=== PATIENT | female | born 1935 | race Caucasian/White ===

== ENCOUNTER → 2016-05-22 | Outpatient (REF) | payer MEDICARE, OTHER ==
[2016-05-22 16:43] LABS: MEAN CORPUSCULAR HEMOGLOBIN 32.7 pg (27.0-33.0); RED CELL DISTRIBUTION WIDTH 13.4 % (11.5-14.5); WHITE BLOOD COUNT 5.7 K/mm3 (4.0-10.0)
[2016-05-22 17:30] LABS: ALBUMIN 4.3 GM/DL (3.2-5.2); ALBUMIN/GLOBULIN RATIO 1.26 (1.00-1.93); BILIRUBIN,TOTAL 0.7 MG/DL (0.2-1.0); CALCIUM LEVEL 9.5 MG/DL (8.8-10.2); CREATININE FOR GFR 1.06 MG/DL (0.55-1.02); FREE T4 1.29 NG/DL (0.76-1.46); GLOMERULAR FILTRATION RATE 53.4 (>39); POTASSIUM SERUM 4.1 MEQ/L (3.5-5.1); TOTAL PROTEIN 7.7 GM/DL (6.4-8.2)
[2016-05-22 18:30] LABS: ANISOCYTOSIS 1+; EOSINOPHILS 1 % (0-5)
== END | disposition home or self-care (01) ==
LOC: M SFHCPLAZ 10:16 → M SFHCCLAY 10:20
PROVIDERS: ATTEND Family Medicine
DX: N18.3 Chronic kidney disease, stage 3 (moderate) (principal); E03.9 Hypothyroidism, unspecified; E53.8 Deficiency of other specified B group vitamins

== ENCOUNTER → 2016-06-05 | Outpatient (CLI) | payer MEDICARE, OTHER ==
--- NOTE | 2016-06-05 15:59 | REP ---
RENAL ULTRASOUND: HISTORY: Renal cyst. The kidneys are normal in echogenicity and size. The right kidney measures 4.6 cm in transverse x 4.6 cm in AP x 8.9 cm in cephalocaudal dimensions. The left kidney measures 5.4 cm in transverse x 5.3 cm in AP x 9.6 cm in cephalocaudal dimensions. A cyst is present in the upper pole of the right kidney. The cyst measures 2.1 x 1.7 x 1.5 cm. There is no hydronephrosis or mass. There are no filling defects in the urinary bladder. IMPRESSION: 2.1 cm right renal cyst. Signed by Delvin Pham MD 06/05/2016 04:04 P
== END | disposition home or self-care (01) ==
LOC: M RAD 13:38
PROVIDERS: ATTEND Family Medicine
DX: N28.1 Cyst of kidney, acquired (principal)

== ENCOUNTER → 2016-09-16 | Outpatient (REF) | payer MEDICARE, OTHER | LOC: M LAB REF 17:04 | PROVIDERS: ATTEND Obstetrics & Gynecology | DX: R89.8 Other abnormal findings in specimens from other organs, systems and tissues (principal) ==

== ENCOUNTER → 2016-10-04 | Outpatient (REF) | payer MEDICARE, OTHER ==
[2016-10-04 11:41] LABS: BASO % 0.4 % (0.0-1.0); EOS # 0.1 K/mm3 (0.0-0.50); LARGE UNSTAINED CELL # 0.1 K/mm3 (0.0-0.4); LARGE UNSTAINED CELL % 1.1 % (0.0-4.0); LYMPH # 1.3 K/mm3 (1.5-4.5); LYMPH % 19.4 % (24.0-44.0); MEAN CORPUSCULAR HEMOGLOBIN 33.1 pg (27.0-33.0); MEAN CORPUSCULAR HGB CONC 32.5 g/dl (32.0-36.5); MEAN CORPUSCULAR VOLUME 101.9 fl (80.0-96.0); MONO # 1.5 K/mm3 (0.0-0.8); MONO % 22.7 % (0.0-5.0); NEUTROPHILS # 3.6 K/mm3 (1.8-7.7); NEUTROPHILS % 54.4 % (36.0-66.0); PLATELET COUNT, AUTOMATED 200 k/mm3 (150-450); RED CELL DISTRIBUTION WIDTH 12.4 % (11.5-14.5); WHITE BLOOD COUNT 6.6 K/mm3 (4.0-10.0)
[2016-10-04 12:10] LABS: ALBUMIN/GLOBULIN RATIO 1.25 (1.00-1.93); BILIRUBIN,TOTAL 0.6 MG/DL (0.2-1.0); CALCIUM LEVEL 8.8 MG/DL (8.8-10.2); FREE T4 1.32 NG/DL (0.76-1.46); GLOMERULAR FILTRATION RATE 57.1 (>39); POTASSIUM SERUM 4.2 MEQ/L (3.5-5.1); TOTAL PROTEIN 7.2 GM/DL (6.4-8.2)
== END ==
LOC: M SFHCCLAY 08:13
PROVIDERS: ATTEND Family Medicine
DX: N18.3 Chronic kidney disease, stage 3 (moderate) (principal); E78.2 Mixed hyperlipidemia

== ENCOUNTER → 2016-10-11 | Outpatient (CLI) | payer MEDICARE, OTHER ==
[~2016-10-11] MED LIST: ALBU0.63 NEB; BIMA01SOL; BREO1INH3 INH; BRIM1OPD; DORZ2OPD; LEVO125T3 OR; LEVO75TA4 OR
--- NOTE | 2016-10-11 13:43 | REP ---
Clinical: Chronic obstructive pulmonary disease. Technique: PA and lateral. Comparison: 2012. Findings: Mediastinum and cardiac silhouette normal. Lung de leon demonstrate mild hyperinflation and diffuse chronic interstitial changes without acute consolidation, effusion, or pneumothorax. Skeletal structures are intact. Impression: Changes related to chronic obstructive pulmonary disease. No obvious acute cardiopulmonary process. Signed by Rd Mario MD 10/11/2016 01:35 P
== END ==
LOC: M RAD 13:06 → M LAB 13:06
PROVIDERS: ATTEND Family Medicine
DX: J44.9 Chronic obstructive pulmonary disease, unspecified (principal)
CPT/HCPCS: 71020; G0463

== ENCOUNTER 2016-10-14 12:47 | Emergency (ER) | payer MEDICARE, OTHER ==
[~2016-10-14] VITALS: Ht 160 cm; Wt 45.4 kg
[2016-10-14] MEDS ORDERED: IPRATROPIUM 0.5MG/ALBUTEROL 2.5MG INH SOL UD 3ML (DUONEB)(J7620) NEB ONE (14:15)
[2016-10-14] MEDS ORDERED: LEVO125T3 OR (14:16)
[2016-10-14] MEDS ORDERED: ALBU0.63 NEB (14:16)
[2016-10-14] MEDS ORDERED: BIMA01SOL (14:16)
[2016-10-14] MEDS ORDERED: BRIM1OPD (14:16)
[2016-10-14] MEDS ORDERED: BREO1INH3 INH (14:16)
[2016-10-14] MEDS ORDERED: DORZ2OPD (14:16)
[2016-10-14] MEDS ORDERED: LEVO75TA4 OR (14:16)
[2016-10-14 15:20] VITALS: BP 145/82
--- NOTE | 2016-10-15 07:20 | ECGEPIP ---
Stationary ECG Study [facility] - ED Test Date: 2016-10-14 Pat Name: MARKO GRECO Department: Room: - Gender: F A P Supervisor: mingo : [id number] Requested By: MARTHA Rodriguez Order Number: [id number] Reading MD: Gonsalo Wright Measurements Intervals [place] Rate: 59 P: 65 ND: 160 QRS: 77 QRSD: 87 T: 71 QT: 397 QTc: 393 Interpretive Statements SINUS BRADYCARDIA WITH SINUS ARRHYTHMIA POSSIBLE LAE INC. RBBB Electronically Signed On 10-15-2016 7:20:02 EDT by Gonsalo Wright
== END 2016-10-14 16:28 | disposition home or self-care (01) ==
LOC: M ED 13:31
DX: J06.9 Acute upper respiratory infection, unspecified (principal); R06.02 Shortness of breath; J44.9 Chronic obstructive pulmonary disease, unspecified; F17.210 Nicotine dependence, cigarettes, uncomplicated; Z79.899 Other long term (current) drug therapy; Z79.51 Long term (current) use of inhaled steroids; Z88.8 Allergy status to other drugs, medicaments and biological substances

== ENCOUNTER → 2016-11-25 | Outpatient (REF) | payer MEDICARE, OTHER ==
[~2016-11-25] MED LIST changes: -LEVO125T3 OR; +LEVO125T4 OR
[2016-11-25 19:16] LABS: BASO % 0.4 % (0.0-1.0); EOS # 0.1 K/mm3 (0.0-0.50); EOS % 1.7 % (0.0-3.0); LARGE UNSTAINED CELL # 0.1 K/mm3 (0.0-0.4); LARGE UNSTAINED CELL % 1.1 % (0.0-4.0); LYMPH # 1.4 K/mm3 (1.5-4.5); LYMPH % 16.9 % (24.0-44.0); MEAN CORPUSCULAR HEMOGLOBIN 33.1 pg (27.0-33.0); MEAN CORPUSCULAR HGB CONC 32.9 g/dl (32.0-36.5); MEAN CORPUSCULAR VOLUME 100.7 fl (80.0-96.0); MONO # 2.3 K/mm3 (0.0-0.8); MONO % 29.2 % (0.0-5.0); NEUTROPHILS % 50.7 % (36.0-66.0); PLATELET COUNT, AUTOMATED 200 k/mm3 (150-450); RED CELL DISTRIBUTION WIDTH 12.8 % (11.5-14.5); WHITE BLOOD COUNT 7.9 K/mm3 (4.0-10.0)
[2016-11-25 19:31] LABS: CALCIUM LEVEL 9.8 MG/DL (8.8-10.2); CREATININE FOR GFR 0.97 MG/DL (0.55-1.02); POTASSIUM SERUM 3.7 MEQ/L (3.5-5.1)
== END ==
LOC: M SFHCPLAZ 15:43
PROVIDERS: ATTEND Physician Assistant
DX: Z01.818 Encounter for other preprocedural examination (principal); N64.9 Disorder of breast, unspecified
CPT/HCPCS: 36415; 80048; 85025; G0463

== ENCOUNTER 2017-01-29 09:43 | Outpatient (RCR) | payer MEDICARE, OTHER | END 2017-02-15 | LOC: M PT 09:43 | PROVIDERS: ATTEND Registered Nurse | DX: Z51.89 Encounter for other specified aftercare (principal); Z90.11 Acquired absence of right breast and nipple; R59.1 Generalized enlarged lymph nodes | CPT/HCPCS: 97162; G8984; G8985; G8986 ==

== ENCOUNTER → 2017-02-05 | Outpatient (REF) | payer MEDICARE, OTHER ==
[2017-02-05 12:27] LABS: MEAN CORPUSCULAR HEMOGLOBIN 33.3 pg (27.0-33.0); MEAN CORPUSCULAR HGB CONC 33.6 g/dl (32.0-36.5); RED CELL DISTRIBUTION WIDTH 12.3 % (11.5-14.5)
[2017-02-05 12:31] LABS: ALBUMIN 3.7 GM/DL (3.2-5.2); ALBUMIN/GLOBULIN RATIO 1.19 (1.00-1.93); ALKALINE PHOSPHATASE 76 U/L (45-117); ALT/SGPT 21 U/L (12-78); ANION GAP 5 MEQ/L (8-16); AST/SGOT 21 U/L (15-37); BILIRUBIN,TOTAL 0.5 MG/DL (0.2-1.0); BLOOD UREA NITROGEN 10 MG/DL (7-18); CALCIUM LEVEL 9.2 MG/DL (8.8-10.2); CARBON DIOXIDE LEVEL 29 MEQ/L (21-32); CHLORIDE LEVEL 107 MEQ/L (98-107); CREATININE FOR GFR 0.88 MG/DL (0.55-1.02); GLOMERULAR FILTRATION RATE > 60.0 (>39); GLUCOSE, FASTING 88 MG/DL (83-110); POTASSIUM SERUM 3.9 MEQ/L (3.5-5.1); SODIUM LEVEL 141 MEQ/L (136-145); TOTAL PROTEIN 6.8 GM/DL (6.4-8.2)
[2017-02-05 13:17] LABS: EOSINOPHILS 8 % (0-5)
== END ==
LOC: M SFHCCLAY 08:29
PROVIDERS: ATTEND Family Medicine
DX: D72.821 Monocytosis (symptomatic) (principal); N18.3 Chronic kidney disease, stage 3 (moderate); E55.9 Vitamin D deficiency, unspecified; Z79.899 Other long term (current) drug therapy

== ENCOUNTER → 2017-02-17 | Outpatient (REF) | payer MEDICARE, OTHER ==
[2017-02-18 10:25] LABS: CARCINOEMBRYONIC ANTIGEN 10.5 NG/ML (<2.5)
== END ==
LOC: M LAB REF 13:31
PROVIDERS: ATTEND Internal Medicine Medical Oncology
DX: C50.919 Malignant neoplasm of unspecified site of unspecified female breast (principal)

== ENCOUNTER → 2017-02-20 | Outpatient (CLI) | payer MEDICARE, OTHER ==
--- NOTE | 2017-02-21 09:32 | DEXA ---
AP SPINE L1 - L4 1.253 0.5 2.3 LT FEMUR TOTAL 0.954 -0.4 1.5 RT FEMUR TOTAL 1.027 0.2 2.1 TOTAL BODY TOTAL OTHER COMMENTS: Normal bone densitometry of the spine and hips. The density of the spine has increased 6.2% since the initial exam on 10/2002. The spine density has increased 3.1% since the most recent exam on 12/2011. The density of the left hip has decreased 3.9% since the initial exam on 10/2002. The density of the left hip has decreased 2.1% since the most recent exam on 2011. The density of the right hip has decreased 1.8% since the initial exam on 2002. The density of the right hip has decreased 0.1% since the most recent exam on 2011. FOLLOW-UP: Recommendation for the next bone density exam: 5 years. SHWETA
== END ==
LOC: M WHC 08:54
PROVIDERS: ATTEND Internal Medicine Medical Oncology
DX: Z13.820 Encounter for screening for osteoporosis (principal); Z85.3 Personal history of malignant neoplasm of breast

== ENCOUNTER → 2017-02-21 | Outpatient (CLI) | payer MEDICARE, OTHER ==
[~2017-02-21] MED LIST changes: +GASTROGRAFIN SOLUTION 30ML (Q9963) As Ordered ONE; +ISOVUE-370 76% 100ML VIAL (Q9967) As Ordered ONE
--- NOTE | 2017-02-21 15:36 | REP ---
CT chest with IV contrast: History: Staging of breast carcinoma. CT contrast dose: 33 ml of intravenous Isovue 370 is administered. The patient declined the rest of the intravenous injection. Comparison CT study June 11, 2013. CT findings: There is fair opacification of the pulmonary arterial tree and the thoracic aorta. There is no evidence of embolus or aneurysm. Vascular calcifications is noted in the aortic arch and great vessel origins. No hilar or mediastinal mass or adenopathy is seen. No pleural or pericardial effusion is seen. The right breast is surgically absent. No axillary adenopathy is seen. There are clips in the right axillary soft tissues. No pulmonary mass or infiltrate is seen. No adrenal lesion is seen. There are two small cortical cysts in the upper pole of the right kidney. Incidental note is made of a 1.8 x 1.9 x 2.2 cm cystic area in the pancreatic tail. This is a new finding compared with the November 29, [address] and the June 01, [address] There is a focal pancreatic tail calcification adjacent to this. No bony destructive lesion is appreciated. Impression: Status post right mastectomy. Status post cholecystectomy. No active intrathoracic disease. 2.2 cm cystic pancreatic lesion in the pancreatic tail, new from prior studies. Transgastric endoscopic ultrasound could be utilized to characterize this further and perhaps sample its histology or content. Signed by Sanjeev Davis MD 02/21/2017 03:59 P
--- NOTE | 2017-02-21 15:42 | REP ---
CT abdomen and pelvis without and with IV contrast: With oral contrast. History: Staging breast carcinoma. CT contrast dose: 33 mL of intravenous Isovue 370 is administered. The patient declined the remainder of the injection. Comparison CT study November 29, 2015. Findings: The liver and spleen are normal in size homogeneous in texture. No adrenal lesion is seen. No focal liver lesion is observed. The gallbladder is surgically absent. There is a homogeneous low density lesion in the pancreatic tail as described in the chest CT report measuring 2.2 cm in greatest diameter. This is new from the comparison CT abdomen imaging November 29, 2015. There is a pancreatic calcification adjacent to this. No adenopathy is seen. No contrast enhancement is seen. There are two right renal cysts. Normal caliber aorta is seen. Small and large intestinal bowel loops are unremarkable. No abdominal mass lesion is seen. No uterine or ovarian abnormality is observed. No bladder mass is observed. No abdominal wall defect. Bone window settings show no bony destructive lesion. Impression: 2.2 cm cystic lesion in the tail of the pancreas. This is new from December 06, 2015 and is suspicious for a cystic pancreatic neoplasm versus pseudocyst. Endoscopic transgastric ultrasound could be utilized for further characterization and possibly tissue sampling. No evidence of mass, adenopathy or metastatic bone disease seen. Signed by Sanjeev Davis MD 02/21/2017 03:59 P
== END ==
LOC: M RAD 12:15
PROVIDERS: ATTEND Internal Medicine Medical Oncology
DX: C50.919 Malignant neoplasm of unspecified site of unspecified female breast (principal)
CPT/HCPCS: 71260; 74178; Q9963; Q9967

== ENCOUNTER → 2017-02-24 | Outpatient (CLI) | payer MEDICARE, OTHER ==
[~2017-02-24] MED LIST changes: -GASTROGRAFIN SOLUTION 30ML (Q9963) As Ordered ONE; -ISOVUE-370 76% 100ML VIAL (Q9967) As Ordered ONE
== END ==
LOC: M PLARAD 10:03
PROVIDERS: ATTEND Internal Medicine Medical Oncology
DX: C50.919 Malignant neoplasm of unspecified site of unspecified female breast (principal)

== ENCOUNTER → 2017-04-07 | Outpatient (REF) | payer MEDICARE, OTHER | LOC: M LAB REF 13:25 | PROVIDERS: ATTEND Internal Medicine Medical Oncology | DX: C50.919 Malignant neoplasm of unspecified site of unspecified female breast (principal); E55.9 Vitamin D deficiency, unspecified; Z79.899 Other long term (current) drug therapy ==

== ENCOUNTER → 2017-06-05 | Outpatient (REF) | payer MEDICARE, OTHER ==
[2017-06-05 17:29] LABS: BASO % 0.8 % (0.0-1.0); EOS # 0.1 10^3/uL (0.0-0.50); EOS % 2.5 % (0.0-3.0); HEMATOCRIT 41.9 % (36.0-47.0); HEMOGLOBIN 13.5 g/dl (12.0-16.0); IMMATURE GRANULOCYTE # 0.1 10^3/uL (0-0); IMMATURE GRANULOCYTE % 1.4 % (0-0); LYMPH # 1.1 10^3/uL (1.5-4.5); LYMPH % 21.2 % (24.0-44.0); MEAN CORPUSCULAR HEMOGLOBIN 31.9 pg (27.0-33.0); MEAN CORPUSCULAR HGB CONC 32.2 g/dl (32.0-36.5); MEAN CORPUSCULAR VOLUME 99.1 fl (80.0-96.0); MONO # 1.8 10^3/uL (0.0-0.8); MONO % 35.3 % (0.0-5.0); NEUTROPHILS % 38.8 % (36.0-66.0); PLATELET COUNT, AUTOMATED 267 10^3/uL (150-450); RED BLOOD COUNT 4.23 10^6/uL (4.00-5.40); RED CELL DISTRIBUTION WIDTH 12.9 % (11.5-14.5); WHITE BLOOD COUNT 5.1 10^3/uL (4.0-10.0)
[2017-06-05 17:37] LABS: HEMATOCRIT 41.9 % (36.0-47.0)
[2017-06-05 18:23] LABS: ALBUMIN/GLOBULIN RATIO 1.11 (1.00-1.93); ALKALINE PHOSPHATASE 121 U/L (45-117); ALT/SGPT 27 U/L (12-78); ANION GAP 6 MEQ/L (8-16); AST/SGOT 25 U/L (7-37); BILIRUBIN,TOTAL 0.4 MG/DL (0.2-1.0); BLOOD UREA NITROGEN 9 MG/DL (7-18); CALCIUM LEVEL 9.4 MG/DL (8.8-10.2); CARBON DIOXIDE LEVEL 30 MEQ/L (21-32); CHLORIDE LEVEL 104 MEQ/L (98-107); CREATININE FOR GFR 0.89 MG/DL (0.55-1.02); FREE T4 1.72 NG/DL (0.76-1.46); GLOMERULAR FILTRATION RATE > 60.0 (>39); GLUCOSE, FASTING 99 MG/DL (83-110); POTASSIUM SERUM 3.9 MEQ/L (3.5-5.1); SODIUM LEVEL 140 MEQ/L (136-145); THYROID STIMULATING HORMONE 0.369 uIU/ML (0.358-3.740); TOTAL PROTEIN 7.6 GM/DL (6.4-8.2)
[2017-06-05 18:26] LABS: VITAMIN B12 LEVEL > 2000 PG/ML (247-911)
[2017-06-06 12:06] LABS: PRETREATED FOLATE FOR RBCFOL 14.3 NG/ML; RBC FOLATE 716.7 NG/ML (280-791)
== END ==
LOC: M SFHCCLAY 09:10
DX: G62.9 Polyneuropathy, unspecified (principal); N18.3 Chronic kidney disease, stage 3 (moderate); E53.8 Deficiency of other specified B group vitamins; Z79.899 Other long term (current) drug therapy
CPT/HCPCS: 84443

== ENCOUNTER → 2017-06-30 | Outpatient (REF) | payer MEDICARE, OTHER ==
[2017-07-01 14:22] LABS: CA19-9 TUMOR MARKER,CARBOHYDRA 15853.6 U/ML (<35.0)
== END ==
LOC: M LAB REF 19:07
DX: C50.919 Malignant neoplasm of unspecified site of unspecified female breast (principal)
CPT/HCPCS: 86301

== ENCOUNTER → 2017-07-07 | Outpatient (REF) | payer MEDICARE, OTHER ==
[2017-07-08 12:46] LABS: CA19-9 TUMOR MARKER,CARBOHYDRA 14070.4 U/ML (<35.0)
== END ==
LOC: M LAB REF 18:03
DX: C50.919 Malignant neoplasm of unspecified site of unspecified female breast (principal); C78.89 Secondary malignant neoplasm of other digestive organs
CPT/HCPCS: 86301

== ENCOUNTER → 2017-07-14 | Outpatient (REF) | payer MEDICARE, OTHER | LOC: M LAB REF 16:57 | DX: C25.9 Malignant neoplasm of pancreas, unspecified (principal) | CPT/HCPCS: 86301 ==

== ENCOUNTER → 2017-07-30 | Outpatient (REF) | payer MEDICARE, OTHER | LOC: M SFHCCLAY 10:11 | DX: E03.9 Hypothyroidism, unspecified (principal) ==

== ENCOUNTER → 2017-08-01 | Outpatient (REF) | payer MEDICARE, OTHER ==
[2017-08-01 17:33] LABS: FREE T4 1.19 NG/DL (0.76-1.46)
== END ==
LOC: M SFHCCLAY 11:25
DX: E03.9 Hypothyroidism, unspecified (principal)
CPT/HCPCS: 84443

== ENCOUNTER → 2017-08-04 | Outpatient (CLI) | payer MEDICARE, OTHER ==
[~2017-08-04] MED LIST changes: -ALBU0.63 NEB; -BIMA01SOL; -BREO1INH3 INH; -BRIM1OPD; -DORZ2OPD; +ISOVUE-370 76% 100ML VIAL (Q9967) As Ordered; -LEVO125T4 OR; -LEVO75TA4 OR
== END ==
LOC: M RAD 09:29
DX: Z85.3 Personal history of malignant neoplasm of breast (principal); Z85.07 Personal history of malignant neoplasm of pancreas; I73.9 Peripheral vascular disease, unspecified; G93.9 Disorder of brain, unspecified
CPT/HCPCS: Q9967

== ENCOUNTER → 2017-08-06 | Outpatient (REF) | payer MEDICARE, OTHER ==
[2017-08-06 16:41] LABS: INR 0.94; PROTHROMBIN TIME 12.7 SECONDS (12.4-14.5)
[2017-08-06 16:42] LABS: PARTIAL THROMBOPLASTIN TIME 32.5 SECONDS (26.8-37.9)
== END ==
LOC: M LABDRAWC 16:17
DX: C50.919 Malignant neoplasm of unspecified site of unspecified female breast (principal); Z79.01 Long term (current) use of anticoagulants
CPT/HCPCS: 85610

== ENCOUNTER → 2017-08-11 | Outpatient (REF) | payer MEDICARE, OTHER ==
[2017-08-12 12:52] LABS: CA19-9 TUMOR MARKER,CARBOHYDRA 1896.5 U/ML (<35.0)
== END ==
LOC: M LAB REF 17:29
DX: C25.9 Malignant neoplasm of pancreas, unspecified (principal)
CPT/HCPCS: 86301

== ENCOUNTER → 2017-08-20 | Outpatient (CLI) | payer MEDICARE, OTHER ==
[~2017-08-20] MED LIST changes: +CLINDAMYCIN 600 MG/50 ML PREMIX BAG As Ordered; -ISOVUE-370 76% 100ML VIAL (Q9967) As Ordered; +LIDOCAINE 2% MDV 20 ML VIAL As Ordered; +MIDAZOLAM INJ 2 MG/2 ML VIAL (J2250) As Ordered; +fentaNYL 100 MCG/2 ML INJECTION (J3010) As Ordered
== END | disposition home or self-care (01) ==
LOC: M IRPRO 07:48
DX: C25.9 Malignant neoplasm of pancreas, unspecified (principal); C78.7 Secondary malignant neoplasm of liver and intrahepatic bile duct
CPT/HCPCS: 36561

== ENCOUNTER → 2017-09-15 | Outpatient (CLI) | payer MEDICARE, OTHER ==
[~2017-09-15] MED LIST changes: -CLINDAMYCIN 600 MG/50 ML PREMIX BAG As Ordered; +ISOVUE-370 76% 100ML VIAL (Q9967) As Ordered; -LIDOCAINE 2% MDV 20 ML VIAL As Ordered; -MIDAZOLAM INJ 2 MG/2 ML VIAL (J2250) As Ordered; -fentaNYL 100 MCG/2 ML INJECTION (J3010) As Ordered
== END ==
LOC: M RAD 10:45
DX: C50.919 Malignant neoplasm of unspecified site of unspecified female breast (principal); N28.1 Cyst of kidney, acquired; R91.8 Other nonspecific abnormal finding of lung field; R93.5 Abnormal findings on diagnostic imaging of other abdominal regions, including retroperitoneum
CPT/HCPCS: Q9967

== ENCOUNTER → 2017-09-22 | Outpatient (REF) | payer MEDICARE, OTHER ==
[2017-09-23 12:23] LABS: CA19-9 TUMOR MARKER,CARBOHYDRA 1241.5 U/ML (<35.0)
== END ==
LOC: M LAB REF 17:52
DX: C78.7 Secondary malignant neoplasm of liver and intrahepatic bile duct (principal); C50.911 Malignant neoplasm of unspecified site of right female breast; C25.2 Malignant neoplasm of tail of pancreas
CPT/HCPCS: 86301

== ENCOUNTER → 2017-10-07 | Outpatient (CLI) | payer MEDICARE, OTHER | LOC: M PLARAD 08:20 | DX: C25.2 Malignant neoplasm of tail of pancreas (principal); C25.9 Malignant neoplasm of pancreas, unspecified (principal) | CPT/HCPCS: 78815 ==

== ENCOUNTER → 2017-10-14 | Outpatient (REF) | payer MEDICARE, OTHER ==
[2017-10-15 11:26] LABS: BASO % 0.5 % (0.0-1.0); EOS # 0.1 10^3/uL (0.0-0.50); EOS % 0.9 % (0.0-3.0); HEMATOCRIT 29.5 % (36.0-47.0); HEMOGLOBIN 9.7 g/dl (12.0-15.5); IMMATURE GRANULOCYTE % 3.8 % (0-3.0); LYMPH # 1.4 10^3/uL (1.5-4.5); LYMPH % 23.1 % (24.0-44.0); MEAN CORPUSCULAR HEMOGLOBIN 35.4 pg (27.0-33.0); MEAN CORPUSCULAR HGB CONC 32.9 g/dl (32.0-36.5); MEAN CORPUSCULAR VOLUME 107.7 fl (80.0-96.0); MONO # 1.7 10^3/uL (0.0-0.8); MONO % 28.4 % (0.0-5.0); NEUTROPHILS # 2.5 10^3/uL (1.8-7.7); NEUTROPHILS % 43.3 % (36.0-66.0); PLATELET COUNT, AUTOMATED 109 10^3/uL (150-450); RED BLOOD COUNT 2.74 10^6/uL (4.00-5.40); RED CELL DISTRIBUTION WIDTH 16.7 % (11.5-14.5); RETIC HEMOGLOBIN EQUIVALENT 37.5 pg (24-36); RETICULOCYTE # 105.8 10^9/L (17-77); RETICULOCYTE % 3.9 % (0.5-1.5); WHITE BLOOD COUNT 5.8 10^3/uL (4.0-10.0)
[2017-10-15 11:52] LABS: TOTAL 25(OH) VITAMIN D 35.9 NG/ML (30.0-100.0)
[2017-10-15 11:53] LABS: VITAMIN B12 LEVEL 1391 PG/ML (247-911)
[2017-10-15 12:02] LABS: ALBUMIN/GLOBULIN RATIO 1.54 (1.00-1.93); ALKALINE PHOSPHATASE 89 U/L (45-117); ALT/SGPT 43 U/L (12-78); ANION GAP 5 MEQ/L (8-16); AST/SGOT 39 U/L (7-37); BILIRUBIN,TOTAL 0.4 MG/DL (0.2-1.0); BLOOD UREA NITROGEN 13 MG/DL (7-18); CALCIUM LEVEL 8.8 MG/DL (8.8-10.2); CARBON DIOXIDE LEVEL 29 MEQ/L (21-32); CHLORIDE LEVEL 104 MEQ/L (98-107); CREATININE FOR GFR 0.96 MG/DL (0.55-1.30); FREE T4 1.35 NG/DL (0.76-1.46); GLOMERULAR FILTRATION RATE 59.5 (>32); GLUCOSE, FASTING 118 MG/DL (70-100); POTASSIUM SERUM 3.8 MEQ/L (3.5-5.1); SODIUM LEVEL 138 MEQ/L (136-145); TOTAL PROTEIN 6.6 GM/DL (6.4-8.2)
== END ==
LOC: M SFHCPLAZ 11:34
DX: E03.9 Hypothyroidism, unspecified (principal); E53.8 Deficiency of other specified B group vitamins; E55.9 Vitamin D deficiency, unspecified; N18.3 Chronic kidney disease, stage 3 (moderate)
CPT/HCPCS: 84443

== ENCOUNTER → 2017-11-04 | Outpatient (CLI) | payer MEDICARE, OTHER | LOC: M PLARAD 07:04 | DX: C25.2 Malignant neoplasm of tail of pancreas (principal); R91.8 Other nonspecific abnormal finding of lung field | CPT/HCPCS: 78815 ==

== ENCOUNTER 2017-11-08 19:02 | Emergency (ER) | payer MEDICARE, OTHER ==
[2017-11-08 20:39] LABS: BASO % 0.2 % (0.0-1.0); EOS % 0.5 % (0.0-3.0); HEMATOCRIT 25.3 % (36.0-47.0); HEMOGLOBIN 8.5 g/dl (12.0-15.5); IMMATURE GRANULOCYTE % 1.4 % (0-3.0); LYMPH % 22.4 % (24.0-44.0); MEAN CORPUSCULAR HEMOGLOBIN 35.6 pg (27.0-33.0); MEAN CORPUSCULAR HGB CONC 33.6 g/dl (32.0-36.5); MEAN CORPUSCULAR VOLUME 105.9 fl (80.0-96.0); MONO # 0.2 10^3/uL (0.0-0.8); MONO % 5.5 % (0.0-5.0); NEUTROPHILS # 3.1 10^3/uL (1.8-7.7); PLATELET COUNT, AUTOMATED 117 10^3/uL (150-450); RED BLOOD COUNT 2.39 10^6/uL (4.00-5.40); RED CELL DISTRIBUTION WIDTH 14.4 % (11.5-14.5); WHITE BLOOD COUNT 4.4 10^3/uL (4.0-10.0)
[2017-11-08 20:54] LABS: ALBUMIN 3.2 GM/DL (3.2-5.2); ALBUMIN/GLOBULIN RATIO 1.14 (1.00-1.93); ALKALINE PHOSPHATASE 76 U/L (45-117); ALT/SGPT 43 U/L (12-78); ANION GAP 6 MEQ/L (8-16); AST/SGOT 31 U/L (7-37); BILIRUBIN,DIRECT 0.1 MG/DL (0.0-0.2); BILIRUBIN,TOTAL 0.4 MG/DL (0.2-1.0); BLOOD UREA NITROGEN 14 MG/DL (7-18); CALCIUM LEVEL 8.4 MG/DL (8.8-10.2); CARBON DIOXIDE LEVEL 29 MEQ/L (21-32); CHLORIDE LEVEL 107 MEQ/L (98-107); CREATININE FOR GFR 0.77 MG/DL (0.55-1.30); GLOMERULAR FILTRATION RATE > 60.0 (>32); GLUCOSE, FASTING 91 MG/DL (70-100); LIPASE 88 U/L (73-393); POTASSIUM SERUM 4.4 MEQ/L (3.5-5.1); SODIUM LEVEL 142 MEQ/L (136-145)
[2017-11-08] MEDS: MORPHINE 4 MG/ML 1ML VIAL/SYRINGE (J2270) IV (20:58)
[2017-11-08] MEDS: ONDANSETRON 4MG/2ML VIAL (J2405) IV (20:58)
[2017-11-08] MEDS: SODIUM CHLORIDE 0.9% INJ 10 ML SYR IV (22:32)
== END 2017-11-08 22:54 | disposition home or self-care (01) ==
LOC: M ED 19:02
DX: C25.9 Malignant neoplasm of pancreas, unspecified (principal); T45.1X5A Adverse effect of antineoplastic and immunosuppressive drugs, initial encounter; R11.2 Nausea with vomiting, unspecified; J44.9 Chronic obstructive pulmonary disease, unspecified; Z72.0 Tobacco use; Z79.891 Long term (current) use of opiate analgesic; Z79.899 Other long term (current) drug therapy; Z88.8 Allergy status to other drugs, medicaments and biological substances
CPT/HCPCS: J2270

== ENCOUNTER → 2017-11-17 | Outpatient (REF) | payer MEDICARE, OTHER ==
[2017-11-18 10:45] LABS: CA19-9 TUMOR MARKER,CARBOHYDRA 992.2 U/ML (<35.0)
== END ==
LOC: M LAB REF 18:05
DX: C78.7 Secondary malignant neoplasm of liver and intrahepatic bile duct (principal); C50.911 Malignant neoplasm of unspecified site of right female breast; C25.2 Malignant neoplasm of tail of pancreas
CPT/HCPCS: 86301

== ENCOUNTER 2017-12-15 09:34 | Emergency (ER) | payer MEDICARE, OTHER ==
[2017-12-15] MEDS: NS 1,000 ML IV ×2 (10:30→19:15)
[2017-12-15 11:09] LABS: BASO % 0.1 % (0.0-1.0); EOS # 0.1 10^3/uL (0.0-0.50); EOS % 0.3 % (0.0-3.0); HEMATOCRIT 29.5 % (36.0-47.0); HEMOGLOBIN 9.7 g/dl (12.0-15.5); IMMATURE GRANULOCYTE % 1.7 % (0-3.0); LYMPH # 0.8 10^3/uL (1.5-4.5); MEAN CORPUSCULAR HEMOGLOBIN 34.2 pg (27.0-33.0); MEAN CORPUSCULAR HGB CONC 32.9 g/dl (32.0-36.5); MEAN CORPUSCULAR VOLUME 103.9 fl (80.0-96.0); MONO % 20.4 % (0.0-5.0); NEUTROPHILS # 11.5 10^3/uL (1.8-7.7); NEUTROPHILS % 72.5 % (36.0-66.0); PLATELET COUNT, AUTOMATED 207 10^3/uL (150-450); RED BLOOD COUNT 2.84 10^6/uL (4.00-5.40); RED CELL DISTRIBUTION WIDTH 14.7 % (11.5-14.5); WHITE BLOOD COUNT 15.9 10^3/uL (4.0-10.0)
[2017-12-15 11:27] LABS: ALBUMIN 3.4 GM/DL (3.2-5.2); ALKALINE PHOSPHATASE 94 U/L (45-117); ALT/SGPT 28 U/L (12-78); ANION GAP 7 MEQ/L (8-16); AST/SGOT 22 U/L (7-37); BILIRUBIN,DIRECT 0.2 MG/DL (0.0-0.2); BILIRUBIN,TOTAL 0.5 MG/DL (0.2-1.0); BLOOD UREA NITROGEN 8 MG/DL (7-18); CALCIUM LEVEL 8.7 MG/DL (8.8-10.2); CARBON DIOXIDE LEVEL 28 MEQ/L (21-32); CHLORIDE LEVEL 105 MEQ/L (98-107); CREATININE FOR GFR 0.65 MG/DL (0.55-1.30); GLOMERULAR FILTRATION RATE > 60.0 (>32); GLUCOSE, FASTING 98 MG/DL (70-100); MONO # 3.3 10^3/uL (0.0-0.8); POSITIVE DIFF POS FLAG; POTASSIUM SERUM 3.7 MEQ/L (3.5-5.1); SODIUM LEVEL 140 MEQ/L (136-145); TOTAL PROTEIN 6.5 GM/DL (6.4-8.2)
[2017-12-15] MEDS ORDERED: ISOVUE-370 76% 100ML VIAL (Q9967) As Ordered (11:57)
[2017-12-15] MEDS: METHYLNALTREXONE BROMIDE 12 MG/0.6 ML VIAL (RELISTOR) SC (12:52)
[2017-12-15] MEDS: LIDOCAINE 2% JELLY 30 ML TOP (12:52)
[2017-12-15 13:17] LABS: KETONE, URINE AUTO RFX TRACE mg/dL (NEGATIVE); LEUKOCYTE ESTERASE UR AUTO RFX 1+ (NEGATIVE); NITRITE, URINE AUTO RFX NEGATIVE (NEGATIVE); RBC, URINE AUTO RFX 5 /HPF (0-3); SPECIFIC GRAVITY UR AUTO RFX 1.017 (1.002-1.035); SQUAM EPITHELIAL CELL UR AURFX 0 /HPF (0-6); WBC, URINE AUTO RFX 2 /HPF (0-3)
[2017-12-15] MEDS: FLEET ENEMA PR ×2 (15:00→17:57)
[2017-12-15] MEDS: MAGNESIUM CITRATE 300 ML BTL PO (16:06)
[2017-12-15] MEDS: MORPHINE 4 MG/ML 1ML VIAL/SYRINGE (J2270) IV (17:57)
[2017-12-15] MEDS ORDERED: NS 1,000 ML IV (20:18)
[2017-12-15] MEDS ORDERED: ACETAMINOPHEN TAB 650MG DOSE (2X325MG) PO (20:30)
[2017-12-15] MEDS ORDERED: BISACODYL 10 MG SUPP PR (20:30)
[2017-12-15] MEDS ORDERED: ALBUTEROL SULFATE 2.5 MG/0.5 ML INH NEB SOLN INH (20:30)
[2017-12-15] MEDS ORDERED: ONDANSETRON 4 MG TAB (S0181) PO (20:30)
[2017-12-15] MEDS ORDERED: PERCOCET 5MG/325MG TAB PO (20:30)
[2017-12-15] MEDS ORDERED: BRIMONIDINE 0.1% OPHTH SOLN 5 ML OU (21:00)
[2017-12-15] MEDS ORDERED: TIMOLOL MALEATE 0.5% OPHTH SOLN 5 ML OD (21:00)
[2017-12-16] MEDS ORDERED: VITAMIN D 1,000 INTERNATIONAL UNITS TABLET PO (09:00)
[2017-12-16] MEDS ORDERED: CYANOCOBALAMIN 500 MCG TAB PO (09:00)
[2017-12-16] MEDS ORDERED: MORPHINE 15 MG SA TAB PO (09:00)
[2017-12-16] MEDS ORDERED: LEVOTHYROXINE 62.5MCG PER 1/2 TAB (0.0625MG) PO (09:00)
[2017-12-16] MEDS ORDERED: ENOXAPARIN 30 MG/0.3 ML SYR (J1650) SC (09:00)
[2017-12-16] MEDS ORDERED: FOLIC ACID 1 MG TAB PO (09:00)
[2017-12-16] MEDS ORDERED: ALBUTEROL SULFATE 2.5 MG/0.5 ML INH NEB SOLN INH (09:00)
== END 2017-12-15 21:41 | disposition home or self-care (01) ==
LOC: M ED 09:34
DX: K59.00 Constipation, unspecified (principal); K92.2 Gastrointestinal hemorrhage, unspecified; R19.5 Other fecal abnormalities; R10.9 Unspecified abdominal pain; J45.909 Unspecified asthma, uncomplicated; K21.9 Gastro-esophageal reflux disease without esophagitis; M54.9 Dorsalgia, unspecified; C25.9 Malignant neoplasm of pancreas, unspecified; C22.9 Malignant neoplasm of liver, not specified as primary or secondary; C50.919 Malignant neoplasm of unspecified site of unspecified female breast; Z90.13 Acquired absence of bilateral breasts and nipples; F17.210 Nicotine dependence, cigarettes, uncomplicated; Z88.8 Allergy status to other drugs, medicaments and biological substances; Z79.899 Other long term (current) drug therapy; Z79.891 Long term (current) use of opiate analgesic
CPT/HCPCS: J2270

== ENCOUNTER → 2017-12-29 | Outpatient (REF) | payer MEDICARE, OTHER ==
[2017-12-30 09:53] LABS: CA19-9 TUMOR MARKER,CARBOHYDRA 2164.3 U/ML (<35.0)
== END ==
LOC: M LAB REF 16:55
DX: C78.7 Secondary malignant neoplasm of liver and intrahepatic bile duct (principal); C50.911 Malignant neoplasm of unspecified site of right female breast; C25.2 Malignant neoplasm of tail of pancreas
CPT/HCPCS: 86301

== ENCOUNTER → 2018-01-22 | Outpatient (REF) | payer MEDICARE, OTHER | LOC: M LAB REF 17:10 | DX: C78.7 Secondary malignant neoplasm of liver and intrahepatic bile duct (principal); C50.911 Malignant neoplasm of unspecified site of right female breast; C25.2 Malignant neoplasm of tail of pancreas | CPT/HCPCS: 86301 ==